=== PATIENT | male | born 1975 | race Hispanic/Latino ===

== ENCOUNTER 2017-03-15 19:50 | Emergency (ER) | payer SELFPAY ==
[2017-03-15 20:38] LABS: #Basophils 0.1 thou/uL (0.0-0.2); #Eosinphils 0.2 thou/uL (0.0-0.7); #Lymphocytes 1.4 thou/uL (1.20-3.40); #Monocytes 0.4 thou/uL (0.11-0.59); #Neutrophils 5.2 thou/uL (1.40-6.50); %Basophils 1.2 % (0.0-1.0); %Eosinophils 2.4 % (0.0-10.0); %Lymphocytes 19.7 % (21.0-51.0); Hematocrit 44.9 % (42.0-52.0); Mean Platelet Volume 7.4 fL (7.4-10.4); Red Blood Cell (RBC) Count 5.47 mill/uL (4.70-6.10); White Blood Cell (WBC) Count 7.3 thou/uL (4.8-10.8)
[2017-03-15 20:51] LABS: Anion Gap 17 mmol/L (10-20); BUN (Urea Nitrogen) 16 mg/dL (8.9-20.6); Calc. Creatinine Clearance 0 mL/min (70-130); Calcium 9.3 mg/dL (7.8-10.44); Carbon Dioxide 22 mmol/L (22-29); Chloride 104 mmol/L (98-107); Estimated GFR-MDRD 87
[2017-03-15 20:55] LABS: Troponin I Less than 0.010 ng/mL (< 0.028)
--- NOTE | 2017-03-15 21:29 | RAD ---
TWO VIEWS CHEST 03/15/17 PROVIDED CLINICAL HISTORY: Shortness of breath. FINDINGS: Comparison 07/20/09. The cardiac and mediastinal silhouette is within normal limits. There is a nodular density at the lef t lung base that appears new as compared to the prior study. The lungs appear otherwise clear. No ple ural fluid or pneumothorax apparent. IMPRESSION: 1. Nodular density at the left lung base may reflect a calcified granuloma given its size and re lative density. As a conservative measure, nonemergent followup chest CT is recommended. 2. Otherwise unremarkable two view chest. POS: [facility]
[2017-03-15 23:51] LABS: Troponin I 0.012 ng/mL (< 0.028)
== END 2017-03-16 00:18 | disposition home or self-care (01) ==
LOC: SCSER 19:50
DX: R06.02 Shortness of breath (principal); R00.2 Palpitations; I10 Essential (primary) hypertension; Z79.899 Other long term (current) drug therapy
CPT/HCPCS: 71020; 80048; 82553; 84484; 85025; 93005; 96360

== ENCOUNTER 2017-03-24 13:08 | Outpatient (CLI) | payer SELFPAY | END 2017-03-24 13:09 | disposition home or self-care (01) | LOC: BICRAD 13:08 | PROVIDERS: ATTEND Internal Medicine | DX: R93.8 Abnormal findings on diagnostic imaging of other specified body structures (principal) | CPT/HCPCS: 71020 ==

== ENCOUNTER 2017-07-10 23:55 | Emergency (ER) | payer SELFPAY ==
[2017-07-11 00:34] LABS: PTT 28.6 SEC (22.9-36.1); Prothrombin Time 13.4 SEC (12.0-14.7)
[2017-07-11] MEDS ORDERED: cloNIDine 0.1 MG TAB ONE (00:39)
[2017-07-11 00:40] LABS: Anion Gap 15 mmol/L (10-20); BUN (Urea Nitrogen) 12 mg/dL (8.9-20.6); Calc. Creatinine Clearance 0 mL/min (70-130); Calcium 9.8 mg/dL (7.8-10.44); Carbon Dioxide 24 mmol/L (22-29); Chloride 103 mmol/L (98-107); Estimated GFR-MDRD Greater than 90; Glucose 108 mg/dL (70-105); Potassium 3.5 mmol/L (3.5-5.1); Sodium 138 mmol/L (136-145)
[2017-07-11 00:43] LABS: #Basophils 0.1 thou/uL (0.0-0.2); #Eosinphils 0.1 thou/uL (0.0-0.7); #Lymphocytes 2.4 thou/uL (1.20-3.40); #Monocytes 0.5 thou/uL (0.11-0.59); #Neutrophils 5.1 thou/uL (1.40-6.50); %Eosinophils 1.8 % (0.0-10.0); %Monocytes 6.6 % (0.0-10.0); %Neutrophils 61.7 % (42.0-75.0); Mean Corpuscular HGB CONC 36.6 g/dL (32.0-36.0); Mean Corpuscular Hemoglobin 29.3 pg (27.0-31.0); Mean Platelet Volume 7.5 fL (7.4-10.4); Platelet Count 227 thou/uL (130-400); RBC Distribution Width 11.4 % (11.5-14.5); Red Blood Cell (RBC) Count 5.81 mill/uL (4.70-6.10); White Blood Cell (WBC) Count 8.3 thou/uL (4.8-10.8)
[2017-07-11 00:45] LABS: Troponin I 0.013 ng/mL (< 0.028)
[2017-07-11 00:46] LABS: CKMB 11.4 ng/mL (0-6.6)
[2017-07-11 01:11] LABS: Amphetamine Not Detected (NotDetected); Barbiturates Screen Not Detected (NotDetected); Benzodiazepine Screen Not Detected (NotDetected); Cocaine Metabolite Screen Not Detected (NotDetected); Medtox Control Line Valid? VALID (VALID); Methadone Not Detected (NotDetected); Methamphetamine Not Detected (NotDetected); Opiate Screen Not Detected (NotDetected); Oxycodone Screen Not Detected (NotDetected); Phencyclidine (PCP) Not Detected (NotDetected); THC/Cannabinoid Screen Not Detected (NotDetected); Tricyclic Screen Not Detected (NotDetected)
--- NOTE | 2017-07-11 08:40 | CT ---
PRELIMINARY REPORT/[facility]/EMERGENTY AFTER-HOURS PROCEDURE Addendum created by Wyatt Johnson MD on 07/11/2017 12:53 AM Central Time ([place] & [place]) THIS REPORT CONTAINS FINDINGS THAT MAY BE CRITICAL TO PATIENT CARE. The findings were verbally commun icated via telephone conference with HARSHA CRUZ at 12:52 AM CDT on 07/11/2017. The findings were ackn owledged and understood. Initial Report created on 07/11/2017 12:50 AM Central Time ([place] & [place]) CT Angiography Head Without and With Intravenous Contrast CLINICAL HISTORY: 42 years old, male; Signs and symptoms; Numbness; Patient HX: M42 presents to ed C/O facial numbness on the l. Side of his face approx. 45 min [employer]. Pt states that he was sleeping, woke up, and noticed t he numbness. Pt reports he has a pmhx of high BP, and takes medication to regulate it. Pt denies havi ng any previous similar episode. Pt denies drug and alcohol use. TECHNIQUE: Axial computed tomographic angiography images of the head without and with intravenous contrast using CT angiography protocol. Coronal and sagittal reformatted images were created and reviewed. CONTRAST: 85 mL of [id number] administered intravenously. COMPARISON: No relevant prior studies available. FINDINGS: VASCULATURE: Right internal carotid artery: No acute findings. Intracranial segment is patent with no significant stenosis. No aneurysm. Right anterior cerebral artery: No occlusion or significant stenosis. No aneurysm. Right middle cerebral artery: No occlusion or significant stenosis. No aneurysm. Right posterior cerebral artery: No occlusion or significant stenosis. No aneurysm. Right vertebral artery: Unremarkable as visualized. Left internal carotid artery: No acute findings. Intracranial segment is patent with no significant s tenosis. No aneurysm. Left anterior cerebral artery: No occlusion or significant stenosis. No aneurysm. Left middle cerebral artery: No occlusion or significant stenosis. No aneurysm. Left posterior cerebral artery: No occlusion or significant stenosis. No aneurysm. Left vertebral artery: Unremarkable as visualized. Basilar artery: No occlusion or significant stenosis. No aneurysm. HEAD: Brain: No acute findings. No hemorrhage. No edema. Normal enhancement. Ventricles: Unremarkable. No ventriculomegaly. Bones/joints: No acute fracture. Soft tissues: Unremarkable. Sinuses: Unremarkable as visualized. No acute sinusitis. Mastoid air cells: Unremarkable as visualized. No mastoid effusion. IMPRESSION: No hemodynamically significant stenosis observed Thank you for allowing us to participate in the care of your patient. Dictated and Authenticated by: Wyatt Johnson MD 07/11/2017 12:50 AM Central Time ([place] & [place]) FINAL REPORT CT BRAIN WITHOUT CONTRAST CT ANGIOGRAM HEAD WITH CONTRAST: Date: 07/11/17 HISTORY: Syncope. Facial numbness. COMPARISON: None. FINDINGS: CT brain performed without intravenous administration of contrast. Subsequently, CT angiogram of the head performed after the intravenous administration of contrast. 3D rendering was provided. Findings and impression are concordant with the preliminary report by [facility]. POS: [facility]
== END 2017-07-11 01:38 | disposition home or self-care (01) ==
LOC: SCSER 23:55
DX: R20.0 Anesthesia of skin (principal); I10 Essential (primary) hypertension; Z79.899 Other long term (current) drug therapy
CPT/HCPCS: 36416; 70496; 80048; 80306; 82553; 84484; 85025; 85610; 85730; 93005